=== PATIENT | female | born 1985 ===

== ENCOUNTER 2020-02-19 13:35 | Inpatient (IN) | payer OTHER ==
[2020-02-19 14:46] VITALS: BMI 33.6
--- NOTE | 2020-02-19 15:26 | HP ---
Past Medical History - Primary Care Physician PCP:: Erich Mack - Admission Chief Complaint: 40.5 weeks, rom History of Present Illness: 34 yo g 1 p0 40.5 weeks by date, 39.5 by sono ,with rom since 930am today, clear, no fever, mild cramps , no bleeding, cx 1 cm , fhr cat 1, irregular contraction - Past Medical History ...: 1 ...Para: 0 ...Term: 0 ...: 0 ...Spon : 0 ...Induced : 0 ...Multiple Gestation: 0 ...LMP: 05/10/19 ... Weeks Gestation by Dates: 40.5 ...EDC by Dates: 02/14/20 ...EDC by Sono: 02/21/20 - Past Surgical History Hx Myomectomy: No Hx Transabdominal Cerclage: No - Smoking History Smoking history: Never smoked Have you smoked in the past 12 months: No - Alcohol/Substance Use Hx Alcohol Use: No - Social History Usual Living Arrangement: Yes: With Spouse Home Medications - Allergies Allergies/Adverse Reactions: Allergies Allergy/AdvReac Type Severity Reaction Status Date / Time No Known Allergies Allergy Verified 02/19/20 14:24 - Home Medications Home Medications: Ambulatory Orders Pnv,Calcium 72/Iron/Folic Acid [ Plus Tablet] 1 tab PO DAILY 02/19/20 Review of Systems - Review of Systems Constitutional: reports: No Symptoms Eyes: reports: No Symptoms HENT: reports: No Symptoms Neck: reports: No Symptoms Cardiovascular: reports: No Symptoms Respiratory: reports: No Symptoms Gastrointestinal: reports: No Symptoms Genitourinary: reports: No Symptoms Breasts: reports: No Symptoms Reported Musculoskeletal: reports: No Symptoms Integumentary: reports: No Symptoms Neurological: reports: No Symptoms Endocrine: reports: No Symptoms Hematology/Lymphatic: reports: No Symptoms Psychiatric: reports: No Symptoms Physical Exam - Maternity Vital Signs: Vital Signs Temperature 98.3 F 02/19/20 13:35 Pulse Rate 89 02/19/20 14:00 Respiratory Rate 18 02/19/20 14:00 Blood Pressure 127/75 02/19/20 14:00 O2 Sat by Pulse Oximetry (%) Constitutional: Yes: Well Nourished, No Distress, Calm Eyes: Yes: WNL, Conjunctiva Clear, EOM Intact HENT: Yes: WNL, Atraumatic, Normocephalic Neck: Yes: WNL, Supple, Trachea Midline Cardiovascular: Yes: WNL, Regular Rate and Rhythm Breast(s): Yes: WNL - Abdominal Exam/OB Fundal Height: 38 Number of Fetuses: Single Presentation: Vertex Contractions: Yes Regularity: Irregular Intensity: Mild/Mod Monitor Mode: External Heart Rate Location: [facility] Category: I Accelerations: Non-Uniform Decelerations: None - Vaginal Exam/OB Vaginal Bleediing: No Dilatation (cm): 1 Effacement (%): 50 Amniotic Membrane Status: Ruptured Nitrazine Test: Positive Amniotic Fluid: Yes: Clear Presentation: Vertex/Position Station: -2 - Physical Exam Musculoskeletal: Yes: WNL Edema: LLE: Trace, RLE: Trace Deep Tendon Reflex Grade: Normal +2 Psychiatric: Yes: WNL Hemorrhage Risk Assessment - Risk Factors Medium Risk Factors: Yes: None High Risk Factors: Yes: None Risk Score: 1 Risk Level: Medium Risk Problem List - Problems (1) Post term over 40 weeks Code(s): O48.0 - POST-TERM (2) PROM (premature rupture of membranes) Code(s): O42.90 - JEZ ROM, 7TH0 BETW RUPT & ONST LABR, UNSP WEEKS OF GEST Qualifiers: PROM gestational age: full term Assessment/Plan admit FHM, GBS negative, expectant management if no labor will induce. risks of induction vs expectant management discussed
[2020-02-19] MEDS ORDERED: BUTORPHANOL TARTRATE 1 MG/ML VIAL IVPUSH ONE (15:28)
[2020-02-19] MEDS ORDERED: PROMETHAZINE HCL 25 MG/1 ML VIAL IVPUSH ONE (15:29)
[2020-02-19 15:32] LABS: BASO % 0.2 % (0-2.0); EOS % 0.2 % (0-4.5); HEMATOCRIT 37.5 % (32.4-45.2); HEMOGLOBIN 12.4 GM/dL (10.7-15.3); LYMPH % 7.7 % (8-40); MCH 29.3 pg (25.7-33.7); MCHC 33.1 g/dl (32.0-36.0); MEAN CELL VOLUME 88.3 fl (80-96); MEAN PLT VOLUME 9.5 fl (7.5-11.1); MONO % 4.8 % (3.8-10.2); NEUT % 87.1 % (42.8-82.8); PLATELET COUNT 195 K/MM3 (134-434); RBC 4.25 M/mm3 (3.60-5.2); RDW 14.5 % (11.6-15.6); WHITE BLOOD COUNT 14.4 K/mm3 (4.0-10.0)
[2020-02-19 15:39] LABS: INR 0.94 (0.83-1.09); PROTHROMBIN TIME (PATIENT) 11.1 SEC (9.7-13.0)
[2020-02-19 15:42] LABS: ACTIVATED PTT 31.4 SECONDS (25.2-36.5)
[2020-02-19 15:54] LABS: BLOOD UREA NITROGEN 7.6 mg/dL (7-18); CALCIUM 8.2 mg/dL (8.5-10.1); CREATININE 0.5 mg/dL (0.55-1.3); POTASSIUM 3.8 mmol/L (3.5-5.1)
[2020-02-19] MEDS ORDERED: BUTORPHANOL TARTRATE 1 MG/ML VIAL ONE ×2 (20:49)
[2020-02-19] MEDS ORDERED: PROMETHAZINE HCL 25 MG/1 ML VIAL ONE (20:49)
[2020-02-19] MEDS ORDERED: ELECTROLYTE-148 SOLN 1,000 ML IV SCH (22:00)
[2020-02-19] MEDS ORDERED: LIDOCAINE HCL 1% PRESERVATIVE FREE - 30ML VIAL ONE (22:38)
[2020-02-19] MEDS ORDERED: OXYTOCIN 20 UNITS in 0.9% NS 20 UNIT/1,000 ML INFUS.BAG IV ONE (22:38)
[2020-02-19] MEDS ORDERED: OXYTOCIN 30 UNITS in 0.9% NS 30 UNIT/500 ML INFUS.BAG IVPB ONE (23:23)
[2020-02-19] MEDS ORDERED: D5W-LR W/ 20 UNITS OXYTOCIN 20 UNIT/1,000 ML INFUS.BAG IV SCH (23:45)
[2020-02-19] MEDS ORDERED: OXYTOCIN 20 UNITS in 0.9% NS 20 UNIT/1,000 ML INFUS.BAG IV SCH (23:45)
[2020-02-19] MEDS ORDERED: WITCH HAZEL 50% (TUCKS) 40 PAD/JAR PAD TP PRN (23:51)
[2020-02-19] MEDS ORDERED: BENZOCAINE 20% 57 GM BOTTLE TP PRN (23:51)
[2020-02-19] MEDS ORDERED: METHYLERGONOVINE MALEATE 0.2 MG/1 ML AMP IM PRN (23:51)
[2020-02-19] MEDS ORDERED: BENZOCAINE 28 GM HEMORRHOIDAL OINTMENT TP PRN (23:51)
[2020-02-19] MEDS ORDERED: BISACODYL 10 MG SUPP.RECT RC PRN (23:51)
--- NOTE | 2020-02-19 23:55 | PN ---
Delivery - Delivery Vaginal Delivery: Spontaneous Type of Anesthesia: Local Episiotomy/Laceration: None, 1st degree (head delivered DARA , ant and post.shoulder with no difficulty , live baby boy 9/9 , first degree laceration repaired with 2.0 chromic , placenta complete, no complication ebl [id number]) Delivery, Single - Feeding Plan Initial Plan: Exclusive throughout hospitalization
[2020-02-20] MEDS ORDERED: OXYTOCIN 20 UNITS in 0.9% NS 20 UNIT/1,000 ML INFUS.BAG IV ONE (00:41)
[2020-02-20] MEDS ORDERED: IBUPROFEN 600 MG TABLET (FP) PO ONE (01:29)
[2020-02-20] MEDS ORDERED: ACETAMINOPHEN 325 MG TABLET (FP) ONE (01:29)
[2020-02-20] MEDS: IBUPROFEN 600 MG TABLET (FP) PO PRN ×3 (01:30→19:45)
[2020-02-20] MEDS: ACETAMINOPHEN 325 MG TABLET (FP) PO PRN ×3 (01:30→19:45)
[2020-02-20 08:22] LABS: BASO % 0.1 % (0-2.0); HEMATOCRIT 29.9 % (32.4-45.2); LYMPH % 7.4 % (8-40); MCH 29.3 pg (25.7-33.7); MCHC 33.3 g/dl (32.0-36.0); MEAN CELL VOLUME 87.9 fl (80-96); MONO % 6.8 % (3.8-10.2); NEUT % 85.7 % (42.8-82.8); PLATELET COUNT 182 K/MM3 (134-434); RDW 14.1 % (11.6-15.6); WHITE BLOOD COUNT 20.3 K/mm3 (4.0-10.0)
--- NOTE | 2020-02-20 08:23 | PN ---
Progress Note (short form) - Note Progress Note: ppd 1 s/p , doing well, no active vaginal bleeding CBC, BMP 02/19/20 14:17 Last Vital Signs Temp Pulse Resp BP Pulse Ox 98.9 F 98 H 18 125/67 99 02/20/20 06:00 02/20/20 06:00 02/20/20 06:00 02/20/20 06:00 02/20/20 01:00 abdomen soft, no distension, no cva uterus firm, non tender lochia mild no calf tenderness plan ambulate . cbc for d/c home in am Problem List - Problems (1) Post term over 40 weeks Code(s): O48.0 - POST-TERM (2) PROM (premature rupture of membranes) Code(s): O42.90 - JEZ ROM, 7TH0 BETW RUPT & ONST LABR, UNSP WEEKS OF GEST Qualifiers: PROM gestational age: full term
[2020-02-20] MEDS: PRENATAL VITAMINS W/ FOLIC ACID TABLET (FP) PO SCH (10:29)
[2020-02-20] MEDS: FERROUS SO4 325 MG TABLET (FP) PO SCH ×2 (10:29→21:48)
[2020-02-20 11:32] LABS: POC NITRAZINE POS
[2020-02-20 13:29] LABS: ANISOCYTOSIS 0; MACROCYTOSIS 0; PLATELET ESTIMATE NORMAL
[2020-02-20] MEDS ORDERED: SENNOSIDES/DOCUSATE COMBO (SENNA PLUS) TABLET (UD) PO PRN (22:00)
--- NOTE | 2020-02-21 08:45 | DS ---
Physical Examination Vital Signs: Vital Signs Temperature 98.2 F 02/20/20 22:00 Pulse Rate 100 H 02/20/20 22:00 Respiratory Rate 18 02/20/20 22:00 Blood Pressure 121/72 02/20/20 22:00 O2 Sat by Pulse Oximetry (%) 99 02/20/20 08:26 Findings/Remarks: Ambulating, breast and bottle feeding, lochia decreased, tolerating PO, voiding, PP/post-op precautions discussed. Constitutional: Yes: No Distress Eyes: Yes: WNL HENT: Yes: Atraumatic Neck: Yes: Supple Cardiovascular: Yes: Regular Rate and Rhythm Respiratory: Yes: Regular Gastrointestinal: Yes: Normal Bowel Sounds ...Rectal Exam: Yes: WNL Renal/: Yes: Other Breast(s): Yes: Other Musculoskeletal: Yes: WNL Extremities: Yes: WNL Edema: Yes Edema: LLE: Trace, RLE: Trace Integumentary: Yes: WNL Neurological: Yes: Alert, Oriented ...Motor Strength: WNL Psychiatric: Yes: Alert, Oriented Labs: CBC, BMP 02/20/20 07:27 02/19/20 14:17 Discharge Summary Problems reviewed: Yes Reason For Visit: LABOR ADMIT Current Active Problems PROM (premature rupture of membranes) (Acute) Post term over 40 weeks (Acute) Procedures: Principal: Vaginal delivery Hospital Course: Uncomplicated delivery and PP recovery Plan of Treatment: Follow up at health center for PP visit. Condition: Good - Instructions Diet, Activity, Other Instructions: regulardiet, follow up [facility] care 3 weeks if fever , pain, heavy vagial bleeding call Referrals: Erich Mack MD [Staff Physician] - Disposition: HOME - Home Medications Comprehensive Discharge Medication List: Ambulatory Orders Pnv,Calcium 72/Iron/Folic Acid [ Plus Tablet] 1 tab PO DAILY 02/19/20 Ibuprofen [Motrin -] 600 mg PO QID #28 tablet 02/20/20 Miscellaneous Medical Supply [Breast Pump, Electronic] 1 each NR ASDIR #1 unit 02/20/20
[2020-02-21] MEDS: ACETAMINOPHEN 325 MG TABLET (FP) PO PRN (09:16)
[2020-02-21] MEDS: PRENATAL VITAMINS W/ FOLIC ACID TABLET (FP) PO SCH (09:16)
[2020-02-21] MEDS: FERROUS SO4 325 MG TABLET (FP) PO SCH (09:16)
[2020-02-21] MEDS: IBUPROFEN 600 MG TABLET (FP) PO PRN (09:17)
[2020-02-21 11:43] VITALS: BP 120/79; PULSE 86; TEMP 98.5
== END 2020-02-21 12:45 | disposition home or self-care (01) | DRG 807 ==
LOC: JLDR 13:35 → UNDOADMIN 13:35 → JLDR 13:40 → J3W 02-20 01:45
PROVIDERS: ADMIT Obstetrics & Gynecology; ATTEND Obstetrics & Gynecology
PROC: 10E0XZZ Delivery of Products of Conception, External Approach (ICD-10-PCS; principal; 2020-02-19)
PROC: 0HQ9XZZ Repair Perineum Skin, External Approach (ICD-10-PCS; 2020-02-19)
DX: O48.0 Post-term pregnancy (principal); Z37.0 Single live birth; O70.0 First degree perineal laceration during delivery; O42.92 Full-term premature rupture of membranes, unspecified as to length of time between rupture and onset of labor; Z3A.40 40 weeks gestation of pregnancy
CPT/HCPCS: 36415; 59409; 80048; 83986-QW; 85025; 85610; 85730; 86780; 86850; 86900; 86901; 87389